=== PATIENT | male | born 2000 | race Caucasian/White ===

== ENCOUNTER 2023-09-04 23:13 | Emergency (ER) | payer OTHER, SELFPAY ==
[2023-09-04 23:15] VITALS: BP 124/88; PULSE 98; TEMP 36.8; O2SAT 98; BMI 18.1
--- NOTE | 2023-09-04 23:24 | CT_ITS ---
The [address] [address] Patient Name: LUZ MARIA ARGUETA MRN: [id number] date: 2000 Sex: M Assigned Patient Location: ER Current Patient Location: ED.MAIN Accession/Order Number: [id number] Exam Date: 09/04/2023 23:46 Report Date: 09/05/2023 00:32 At the request of: DULCE SEGAL Procedure: CT head/brain wo con INDICATION: 23 years old; Male. Posterior headache for one month. No trauma. TECHNIQUE: CT Head (ax/cor/sag reformats). Ionizing radiation dose reduced via iterative reconstruction/FBP blend and body size kV/mA adjustment. Comparison: None FINDINGS: POSTOPERATIVE CHANGES: None. BRAIN PARENCHYMA: No intraparenchymal or extra-axial hemorrhage. No mass effect. No midline shift or herniation. Normal mark/white differentiation. VENTRICLES/EXTRA-AXIAL SPACES: Normal for patient's age. SINUSES/MASTOIDS: The sinuses are clear, however the paranasal sinuses are not completely included in this head CT. Mastoids and middle ears are clear. MSK: No displaced or depressed calvarial fracture. OTHER: No hyperdense intraluminal thrombus. CT/CT head/brain wo con IMPRESSION: 1. No acute intracranial abnormality. No hemorrhage or mass effect. If there is continued concern for intracranial pathology, then MRI including diffusion imaging would be recommended. Electronically authenticated by: OLIMPIA FELTON Date: 09/05/2023 00:32
--- NOTE | 2023-09-04 23:24 | ED_ITS ---
HPI HPI - General Adult General Chief complaint: Neuro Symptoms/Deficit Stated complaint: LIGHTHEADED AND DIZZY, NUMBNESS L LEG YESTERDAY Time Seen by Provider: 09/04/23 23:18 Source: patient Mode of arrival: walk-in Limitations: no limitations History of Present Illness HPI narrative: 23-year-old male presents to the emergency department for headache and dizziness. He has had this headache in the posterior part of his head for a month. There was no trauma. No localized weakness. He has not had fever or vomiting. He has never had this issue before. He sometimes feels dizzy, it f eels like the room is spinning. Related Data Previous Rx's ?Medication ?Instructions ?Recorded ocociljfvr-sjrplfpjoynkm-lciyjgis 1 cap PO Q6H PRN pain 5 days #20 09/05/23 50 mg-300 mg-40 mg capsule caps (Fioricet) Allergies Allergy/AdvReac Type Severity Reaction Status Date / Time No Known Drug Allergies Allergy Verified 09/04/23 23:19 Opioid HPI Opioid Management Most Recent Opioid Data: No Data to Display Review of Systems ROS Narrative A ten point review of systems is negative except as noted above. Exam Narrative Exam Narrative: Nurses note and vital signs reviewed and patient is not hypoxic. General: The patient appears well and in no apparent distress. Patient is resting comfortably on cart. Skin: Warm, dry, no pallor noted. There is no rash noted. Head: Normocephalic, atraumatic, no rash or swelling or tenderness to his posterior scalp. Cervical spine nontender Eye: Normal conjunctiva, no drainage Ears, Nose, Mouth, and Throat: oral mucosa is moist. Nares patent. Cardiovascular: Regular Rate and Rhythm Respiratory: Patient is in no distress, no accessory muscle use, lungs are clear to auscultation, no wheezing, rales or rhonchi Back: non-tender GI: Normal bowel sounds, no tenderness to palpation, no masses appreciated. No rebound, guarding, or rigidity noted. Musculoskeletal: All extremity joints have full range of motion Neurological: A&O x4, normal speech, upper and lower extremity strength intact Psychiatric: Cooperative Constitutional Vital Signs, click to edit/add: Last Vital Signs Temp 98.3 F 09/04/23 23:15 Pulse 84 09/05/23 00:28 Resp 16 09/05/23 00:28 BP 107/65 09/05/23 00:28 Pulse Ox 97 09/05/23 00:28 O2 Del Method Room Air 09/05/23 00:28 Course Vital Signs Vital signs: Vital Signs Temperature 98.3 F 09/04/23 23:15 Pulse Rate 98 H 09/04/23 23:15 Respiratory Rate 18 09/04/23 23:15 Blood Pressure 124/88 09/04/23 23:15 Pulse Oximetry 98 09/04/23 23:15 Oxygen Delivery Method Room Air 09/04/23 23:15 Temperature 98.3 F 09/04/23 23:15 Pulse Rate 84 09/05/23 00:28 Respiratory Rate 16 09/05/23 00:28 Blood Pressure 107/65 09/05/23 00:28 Pulse Oximetry 97 09/05/23 00:28 Oxygen Delivery Method Room Air 09/05/23 00:28 Medical Decision Making MDM Narrative Medical decision making narrative: CT is negative. He will be treated symptomatically and was recommended follow- up with his PCP. Findings were discussed with the patient. Differential Diagnosis Differential Diagnosis: Tension headache, intracranial hemorrhage Imaging Data CT scan - head: Radiologist's impression: ITS Impressions Head CT 09/04/23 23:24 IMPRESSION: 1. No acute intracranial abnormality. No hemorrhage or mass effect. If there is continued concern for intracranial pathology, then MRI including diffusion imaging would be recommended. Electronically authenticated by: OLIMPIA FELTON Date: 09/05/2023 00:32 Discharge Plan Discharge Stand Alone Forms: Portal Instructions Chief Complaint: Neuro Symptoms/Deficit Clinical Impression: Headache Patient Disposition: Home, Self-Care Time of Disposition Decision: 00:50 Condition: Good Mode of Transportation: Private Vehicle Prescriptions / Home Meds: New xdztuubmbo-qspprlisppzvn-uhhb [Fioricet] 50-300-40 mg capsule 1 cap PO Q6H PRN (Reason: pain) 5 Days Qty: 20 0RF Print Language: Mexican Instructions: Acute Headache (ED) Referrals: Marilyn Paz DO [Primary Care Provider] - 1 week
--- NOTE | 2023-09-04 23:24 | PC.NURSE ---
States left leg feels a little like it is asleep.
--- NOTE | 2023-09-04 23:26 | ECG_ITS ---
The 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
[2023-09-05 00:28] VITALS: BP 107/65; PULSE 84; O2SAT 97
== END 2023-09-05 00:56 | disposition home or self-care (01) ==
PROVIDERS: Emergency Provider Emergency Medicine
DX: R51.9 Headache, unspecified (principal)
CPT/HCPCS: 70450; 93005; 99284